=== PATIENT | female | born 1965 | race American Indian/Alaskan Native ===

== ENCOUNTER 2016-12-27 16:20 | Emergency (ER) | payer OTHER ==
[2016-12-27 16:34] VITALS: BP 121/82
[2016-12-27 17:45] LABS: Basophils % (Auto) 0.6 % (0.0-1.8); Hematocrit 39.8 % (30.3-42.9); Hemoglobin 13.5 gm/dl (10.1-14.3); Mean Corpuscular HGB Conc 34 % (30-34); Mean Corpuscular Hemoglobin 30 pg (28-32); Mean Corpuscular Volume 87 fl (79-97); Platelet Count 170 K/mm3 (140-440); Red Blood Count 4.58 M/mm3 (3.65-5.03); Red Cell Distribution Width 14.6 % (13.2-15.2); White Blood Count 6.7 K/mm3 (4.5-11.0)
[2016-12-27 17:57] LABS: Anion Gap 18 mmol/L; BUN/Creatinine Ratio 8.33; Blood Urea Nitrogen 5 mg/dL (7-17); Calcium 9.1 mg/dL (8.4-10.2); Carbon Dioxide 25 mmol/L (22-30); Chloride 98.9 mmol/L (98-107); Glucose 81 mg/dL (65-100); Sodium 138 mmol/L (137-145)
--- NOTE | 2016-12-27 18:07 | XRay Report ---
FINAL REPORT PROCEDURE: XR CHEST ROUTINE 2V TECHNIQUE: PA and lateral chest radiographs were obtained. CPT 71296 HISTORY: chest pain COMPARISON: No prior studies are available for comparison. FINDINGS: Heart: Normal. Mediastinum/Vessels: Normal. Lungs/Pleural space: Opacification the left lower lung most consistent with an infiltrate. No effusion or pneumothorax. Bony thorax: No acute osseous abnormality. Other: IMPRESSION: Findings consistent with infiltrate in the left lower lung. Followup study after clinical therapy is recommended..
== END 2016-12-28 02:35 | disposition left against medical advice (07) ==
LOC: ED 16:20
DX: R07.9 Chest pain, unspecified (principal); R51 Headache; Z53.21 Procedure and treatment not carried out due to patient leaving prior to being seen by health care provider
CPT/HCPCS: 36415; 71020; 80048; 82375; 84484; 85025; 93005; 93010